=== PATIENT | female | born 1995 | race Two or more races ===

== ENCOUNTER 2025-06-27 23:48 | Emergency (ER) | payer MEDICAID, SELFPAY ==
[2025-06-27 23:48] VITALS: BMI 26.9
[2025-06-27 23:57] VITALS: BP 126/77; PULSE 107; RESP 18; TEMP 36.9; O2SAT 99
--- NOTE | 2025-06-28 00:17 | XR_ITS ---
Examination: OB Transvaginal ultrasound of the pelvis, complete Technique: Transvaginal sonographic images pelvis performed using hanson scale imaging Exam date and time: June 28, 2025, 0244 hours INDICATIONS: Onset of vaginal bleeding beginning yesterday, clinical diagnosis threatened FINDINGS: Uterus 12.1 cm Endometrial stripe 12 mm No uterine mass or intrauterine gestation Right ovary 3.5 cm arterial flow Left ovary 3.4 cm arterial flow 13 mm follicular cyst IMPRESSION: Mildly vascular endometrium which measures 12 mm, no definite retained products of conception No intrauterine gestation If vaginal bleeding persists, recommend short-term repeat transvaginal pelvic sonography.
--- NOTE | 2025-06-28 00:18 | PD.EDRME ---
Rapid Medical Screening Exam [facility] Arrival date/time: 06/27/25 23:48 30F with history of DM presents to ED with worsening vaginal bleeding. Patient was told in office by Dr. Fairbanks that she is having a miscarriage. Patient has had near-syncopal episodes. Chief Complaint: Vaginal Bleeding Vital signs: Vital Signs Temperature 98.5 F 06/27/25 23:57 Pulse Rate 107 H 06/27/25 23:57 Respiratory Rate 18 06/27/25 23:57 Blood Pressure 126/77 06/27/25 23:57 Pulse Oximetry (%) 99 06/27/25 23:57 Oxygen Delivery Method Room Air 06/27/25 23:57
[2025-06-28 00:46] LABS: Basophils # (Auto) 0.1 Thou/mm3 (0.0-0.2); Basophils % (Auto) 1 % (0-2.5); Eosinophils # (Auto) 0.1 Thou/mm3 (0.0-0.5); Eosinophils % (Auto) 1 % (0-10); Hematocrit 29.0 % (36.0-46.0); Hemoglobin 10.0 g/dL (12.0-16.0); Immature Granulocytes Auto 0.08 Thou/mm3 (0.00-0.00); Lymphocytes # (Auto) 1.9 Thou/mm3 (1.0-4.8); Lymphocytes % (Auto) 13 % (10-50); Mean Corpuscular HGB Conc 34.5 g/dl (31.0-37.0); Mean Corpuscular Hemoglobin 30.0 pg (25.0-35.0); Mean Corpuscular Volume 87 fL (80-100); Monocytes # (Auto) 0.8 Thou/mm3 (0.0-0.8); Monocytes % (Auto) 5 % (0-12); Neutrophils # (Auto) 12.2 Thou/mm3 (1.8-7.7); Neutrophils % (Auto) 81 % (37-80); Nucleated Red Blood Cell # 0.00 Thou/mm3 (0.00-0.00); Nucleated Red Blood Cell % 0 /100 WBC (0); Platelet Count 271 Thou/mm3 (140-440); RDW Standard Deviation 42.1 fL (36.4-46.3); Red Blood Count 3.33 Miln/mm3 (4.00-5.20); White Blood Count 15.1 Thou/mm3 (3.6-11.0)
[2025-06-28 01:20] VITALS: BP 119/83; PULSE 98; RESP 18; TEMP 36.7; O2SAT 100
[2025-06-28] MEDS: SODIUM CHLORIDE 0.9% 1000 ML 1,000 ML 999 ML IV ×2 (01:20→03:02)
[2025-06-28 01:25] LABS: Alanine Aminotransferase 7 U/L (10-49); Albumin, Serum 4.5 gm/dL (3.5-5.0); Albumin/Globulin Ratio 2.8 (1.2-2.2); Alkaline Phosphatase 22 U/L (46-116); Anion Gap 11 (7-16); Aspartate Amino Transferase 10 U/L (0-34); BUN/Creatinine Ratio 17 Ratio (12-20); Beta HCG,Quantitative 2265 mIU/mL (<5.0); Bilirubin,Total 0.3 mg/dL (0.3-1.2); Blood Urea Nitrogen 12 mg/dL (9-23); Calcium 9.1 mg/dL (8.3-10.6); Calcium (Corrected) 9.1 mg/dL (8.5-10.1); Carbon Dioxide 22.3 mMol/L (20.0-31.0); Chloride 103 mMol/L (98-107); Creatinine (Component) 0.7 mg/dL (0.6-1.3); Estimated Creatinine Clearance 123.3 mL/min (>60); Globulin 1.6 gm/dL (2.3-3.5); Glucose 218 mg/dL (74-106); Osmolality,Calculated 278 (275-295); Potassium 4.1 mMol/L (3.4-5.1); Sodium 136 mMol/L (136-145); Total Protein 6.1 gm/dL (5.7-8.2); eGFR > 60 See Note
--- NOTE | 2025-06-28 01:56 | EDNOTE_ITS ---
ED OB Contraction Preg RMI/HPI General Chief complaint: Vaginal Bleeding Stated complaint: VAGINAL BLEEDING, RECENT MISCARRIAGE Arrival date/time: 06/27/25 23:48 RME / HPI RME / HPI Narrative: 06/27/25 23:48 30F with history of DM presents to ED with worsening vaginal bleeding. Patient was told in office by Dr. Fairbanks that she is having a miscarriage. Patient has had near-syncopal episodes. Dr. Velásquez?s Main ED Evaluation: 30yo female presents to the ED for a chief complaint of worsening vaginal bleeding. Patient states she was told [address] Fairbanks, [employer], that she was having a miscarriage and has since been seen at his office weekly. Patient states she started having vaginal spotting 2 days ago that got progressively worse. Patient reports associated pelvic cramping and was concerned when she felt like she was going to faint just [employer]. She denies any N/V, fever, chills, or any other associated symptoms. NKA. Related Data Previous Rx's ?Medication ?Instructions ?Recorded insulin glargine 100 unit/mL (3 22 unit (0.22 mL) subc ut QAM #15 mL 12/26/22 mL) subcutaneous pen (Basaglar KwikPen U-100 Insulin) Allergies Allergy/AdvReac Type Severity Reaction Status Date / Time No Known Allergies Allergy Unverified 12/27/22 09:15 Review of Systems Review of Systems Systems Reviewed: All systems reviewed, normal except as documented Past Medical History Past Medical History NEUROLOGIC: Negative Neurological Disorders or Seizures CARDIAC: Negative Cardiac Disorders or Congestive Heart Failure RESPIRATORY: Negative Chronic Obstructive Pulmonary Disease (COPD) GASTROINTESTINAL: Negative Gastrointestinal Disorders, Hepatitis or Colorectal Cancer GENITOURINARY: Negative Genitourinary Disorders, Renal Disease or Prostate Cancer REPRODUCTIVE: Negative Breast Cancer or Testicular Cancer MUSCULOSKELETAL: Negative Musculoskeletal Disorders or Bone Cancer ENDOCRINE: Positive Diabetes Mellitus Type 2; Negative Endocrine Disorders or Diabetes Mellitus Type 1 HEMATOLOGIC: Negative Blood Disorders OTHER HISTORY: Negative Hospitalization, Autoimmune Disease, Down Syndrome, Developmental Delay, Shingles, Falls, Blood Transfusions, Blood Transfusion Reaction, Anesthesia Reactions, Organ Transplant, Chemotherapy, Radiation Therapy, Hyperbaric Therapy, MRSA, VRSA, Vancomycin-Resistant Enterococci, Human Immunodeficiency Virus (HIV), Chicken Pox, Measles, Mumps, Rubella (Cymraes Measles), Pertussis, Clostridium Difficile, Cancer, Breast Cancer, Cervical Cancer, Colorectal Cancer, Lung Cancer, Ovarian Cancer, Prostate Cancer or Testicular Cancer Family History FAMILY HISTORY: Negative Family Psychiatric Problems, Family Respiratory Disorders, Family Cardiac Disorders, Family Gastrointestinal Problems, Family Cancer, Family Surgery or Family Anesthesia Reaction Surgical History SURGICAL: Negative Organ Transplant Social History SMOKING STATUS: Never smoker SECOND HAND EXPOSURE: No ED Exam Narrative Physical exam: Generally patient is alert somewhat pale appearing but no obvious distress, heart regular rate and rhythm, lungs clear to auscultation equal bilaterally, abdomen soft bowel sounds present nondistended nontender, pelvic exam refused, skin is cool pale and dry, neurologic exam shows Mesha Coma Scale of 15 without focal motor deficits Course Quality Measures none Orders Category Date Time Status Insert IV NOW Care 06/28/25 00:17 Active US OB transvaginal Stat Exams 06/28/25 00:17 Taken Beta HCG,Quantitative Stat Lab 06/28/25 00:31 Completed CBC Stat Lab 06/28/25 00:31 Completed CMP [Comprehensive Metabolic Panel] Stat Lab 06/28/25 00:31 Completed Type and Screen Stat Lab 06/28/25 00:31 Completed Sodium Chloride 0.9% 1000 ml [Ns] 1,000 ml Med 06/28/25 00:17 Discontinued IV 999 mls/hr Sodium Chloride 0.9% 1000 ml [Ns] 1,000 ml Med 06/28/25 02:10 Discontinued IV 999 mls/hr Vital Signs Vital signs: Vital Signs Temperature 98.5 F 06/27/25 23:57 Pulse Rate 107 H 06/27/25 23:57 Respiratory Rate 18 06/27/25 23:57 Blood Pressure 126/77 06/27/25 23:57 Pulse Oximetry (%) 99 06/27/25 23:57 Oxygen Delivery Method Room Air 06/27/25 23:57 Vaginal Bleeding MDM Narrative MDM Narrative: Scribe Attestation: 06/28/25 Julieta Foster am scribing for and in the presence of Dr. Velsáquez. Patient was told by her [employer] physician approximately 1 week ago that she was going to have a miscarriage. She had heavy vaginal bleeding with clots today. Hemoglobin was 10. Ultrasound showed thickened endometrium but other than that nothing within the uterus. No free fluid in the pelvis. Adnexa were clear. It appears as if the patient has had a completed . She was hydrated with 2 L of IV normal saline here in the emergency room. Patient's vital signs were stable here in the emergency room. Patient data External records reviewed:: [facility] previous records (Per chart review, patient was seen here on 03/12/24 for blighted ovum.) Clinical information provided by:: patient Social determinants that could affect healthcare access:: none Patient has the following chronic illnesses:: DM How is presenting disease/condition affected by chronic disease/condition?: uneffected by Evaluation data The following diagnostics were reviewed and interpreted by me:: lab results and radiology exam(s) Lab and/or radiology exams considered but not ordered:: none Interpretation Summary: Pelvic ultrasound (transvaginal) with Doppler and wave Doppler spectral analysis. June 28, 2025 at 0244 hours Clinical history: Vaginal bleeding since yesterday Technique: Real-time, grayscale, transabdominal and transvaginal pelvic ultrasound was performed using Duplex scanning including arterial inflow, venous outflow, color and spectral Doppler. Comparison: None available at the time of this report. Findings: The uterus is normal in size measuring 12.1 x 7.7 x 6.0 cm. The endometrium marilu sures 1.2 cm, some vascularity noted in the endometrial region. The right ovary measures 3.5 x 2.7 x 1.8 cm and is unremarkable. The left ovary measures 3.4 x 1.7 x 2.5 cm, mildly complex cyst measuring 1.3 x 1.3 x 0.9 cm, probably functional. Both ovaries demonstrate color flow and spectral waveforms on Doppler evaluation. There is no adnexal mass. There is no free fluid on the submitted images. Impression: 1. Hypervascular endometrium of uncertain etiology, further evaluation is recommended. Please, correlate clinically. 2. No evidence of ovarian torsion. 3. Mildly complex left ovarian cystic lesion, please correlate clinically. Consider short-term follow-up with ultrasound. This report has been electronically signed by: Thierno Keys MD. Medications / Prescriptions Medications or Prescriptions considered but not ordered:: none Medication administrations:: Medication Administration History Discontinued Medications Sodium Chloride (Ns) 1,000 mls @ 999 mls/hr IV .Q1H1M ONE Stop: 06/28/25 01:17 Last Infusion: 06/28/25 03:02 Dose: Infused Documented By: Admin: 06/28/25 01:20 Dose: 999 mls/hr Documented By: LEAH Sodium Chloride (Ns) 1,000 mls @ 999 mls/hr IV .Q1H1M ONE Stop: 06/28/25 03:10 Last Infusion: 06/28/25 04:03 Dose: Infused Documented By: Admin: 06/28/25 03:02 Dose: 999 mls/hr Documented By: ROSY see above Consultations Consultation(s) initiated? (list below): No Diagnosis Vaginal Bleeding Differential Diagnosis: other (See MDM) Most likely diagnosis given after review of the tests above:: see clinical impression below Admission Indicated Admission indicated?: not indicated Admission Request Was there a request for admission?: No Disposition Plan Disposition Plan: Discharge Discharge Attestation Discharge Attestation: The patient and all family members were given an opportunity to ask questions and understood the discharge instructions. Discharge instructions specifically effects, indications for sooner follow up or return to the emergency department, and the expected course of current diagnosis. Patient condition: Stable Discharge Plan Plan Patient Disposition: HOME (Self Care) Prescriptions/Referrals Prescriptions/Med Rec: No Action insulin glargine [Basaglar KwikPen U-100 Insulin] 100 unit/mL (3 mL) insulin pen 22 unit subcut QAM Qty: 15 0RF Referrals: Naa Lira FNP-C [Primary Care Provider] - In 1 week Problem List Clinical Impression: Complete Patient/Caregiver Discharge Instructions Education Materials: Understanding Miscarriage ... Additional Instructions: It appears as if you are completing your miscarriage. Keep well-hydrated. Rise up from a sitting or lying position slowly. Follow-up with your [employer] physician. Return to ER as needed or if condition worsens. Print Language: Macedonian Stand Alone Forms: Cristin Award Info., Patient Portal Info Letter
[2025-06-28 05:33] VITALS: BP 115/64; PULSE 64; RESP 18; TEMP 36.9; O2SAT 98
== END 2025-06-28 05:37 | disposition home or self-care (01) ==
PROVIDERS: Physician Assistant; Emergency Provider Emergency Medicine; PCP Nurse Practitioner Family
DX: O03.9 Complete or unspecified spontaneous abortion without complication (principal); E11.9 Type 2 diabetes mellitus without complications; N83.202 Unspecified ovarian cyst, left side; Z79.4 Long term (current) use of insulin
CPT/HCPCS: 36415; 76817; 80053; 84702; 85025; 86850; 86900; 86901; 96360; 96361; 99282; J7030